=== PATIENT | female | born 1955 | race Caucasian/White ===

== ENCOUNTER → 2018-05-23 | Outpatient (CLI) | payer BC ==
[2018-05-23 08:37] LABS: EOS # 0.1 (0.04-0.40); EOS % 0.4 % (1.0-5.0); HEMATOCRIT 40.2 % (37.0-47.0); HEMOGLOBIN 12.9 g/dL (12.5-16.0); LYMPH# 3.1 (1.50-4.00); MEAN CELL VOLUME 89 fl (78-100); MEAN CORPUSCULAR HEMOGLOBIN 29 pg (27-31); MEAN CORPUSCULAR HGB CONC 32 g/dL (33-37); MEAN PLATELET VOLUME 9.2 fl (7.4-10.4); MONO # 0.8 (0.20-0.80); PLATELET COUNT 423 K/mm3 (130-400); RED BLOOD COUNT 4.53 M/mm3 (4.10-5.30); RED CELL DISTRIBUTION WIDTH 14.8 % (11.5-14.5)
[2018-05-23 09:09] LABS: ALBUMIN 4.3 g/dL (3.5-5.0); CALCIUM 9.7 mg/dL (8.4-10.2); POTASSIUM 4.7 mmol/L (3.6-5.0); TOTAL BILIRUBIN 0.4 mg/dL (0.2-1.3); TOTAL PROTEIN 7.6 g/dL (6.3-8.2)
[2018-05-23 09:39] LABS: ERYTHROCYTE SEDIMENTATION RATE 22 mm/hr (0-30)
[2018-05-23 22:08] LABS: C-REACTIVE PROTEIN XXX
[2018-05-23 23:58] LABS: IGM,SERUM 74 mg/dL (33-293); IMMUNOGLOBULIN A 355 mg/dL (69-517); IMMUNOGLOBULIN G 867 mg/dL (552-1631)
== END ==
LOC: RAD 08:13
PROVIDERS: Internal Medicine
DX: J01.90 Acute sinusitis, unspecified (principal); J32.4 Chronic pansinusitis; I10 Essential (primary) hypertension

== ENCOUNTER 2018-06-05 13:00 | Outpatient (RCR) | payer BC | END 2018-06-05 13:30 | disposition home or self-care (01) | LOC: PT 13:00 | DX: M47.816 Spondylosis without myelopathy or radiculopathy, lumbar region (principal); M70.62 Trochanteric bursitis, left hip; M70.61 Trochanteric bursitis, right hip; M76.32 Iliotibial band syndrome, left leg; M76.31 Iliotibial band syndrome, right leg ==

== ENCOUNTER → 2018-06-24 | Outpatient (CLI) | payer BC | LOC: RAD 19:04 | DX: M18.12 Unilateral primary osteoarthritis of first carpometacarpal joint, left hand (principal); S63.502A Unspecified sprain of left wrist, initial encounter; W19.XXXA Unspecified fall, initial encounter ==

== ENCOUNTER → 2018-09-04 | Outpatient (CLI) | payer BC | LOC: RAD 12:00 | DX: S62.012A Displaced fracture of distal pole of navicular [scaphoid] bone of left wrist, initial encounter for closed fracture (principal); M18.12 Unilateral primary osteoarthritis of first carpometacarpal joint, left hand; R60.1 Generalized edema ==

== ENCOUNTER → 2018-09-13 | Outpatient (CLI) | payer BC | LOC: CANPRECLI → RAD 09:46 | DX: M25.532 Pain in left wrist (principal) ==

== ENCOUNTER → 2018-10-23 | Outpatient (CLI) | payer BC | LOC: RAD 15:00 | DX: J32.4 Chronic pansinusitis (principal); J01.90 Acute sinusitis, unspecified; R06.02 Shortness of breath ==

== ENCOUNTER → 2019-01-22 | Outpatient (CLI) | payer BC ==
[2019-01-22 10:32] LABS: BASO # 0.1 (0.02-0.10); EOS # 0.1 (0.04-0.40); EOS % 1.3 % (1.0-5.0); HEMATOCRIT 41.9 % (37.0-47.0); HEMOGLOBIN 12.7 g/dL (12.5-16.0); LYMPH# 2.2 (1.50-4.00); MEAN CELL VOLUME 90 fl (78-100); MEAN CORPUSCULAR HEMOGLOBIN 27 pg (27-31); MEAN CORPUSCULAR HGB CONC 30 g/dL (33-37); MEAN PLATELET VOLUME 10.1 fl (7.4-10.4); MONO # 0.7 (0.20-0.80); NEU # 7.2 (1.40-6.50); PLATELET COUNT 411 K/mm3 (130-400); RED BLOOD COUNT 4.68 M/mm3 (4.10-5.30); RED CELL DISTRIBUTION WIDTH 14.9 % (11.5-14.5); WHITE BLOOD COUNT 10.4 K/mm3 (4.8-10.8)
== END ==
LOC: LAB 09:38
PROVIDERS: Internal Medicine Pulmonary Disease
DX: R06.02 Shortness of breath (principal); R05 Cough

== ENCOUNTER → 2019-09-04 | Outpatient (CLI) | payer BC ==
[2019-09-04 08:53] LABS: BASO # 0.1 (0.02-0.10); EOS # 0.2 (0.04-0.40); EOS % 1.3 % (1.0-5.0); HEMATOCRIT 42.8 % (37.0-47.0); HEMOGLOBIN 13.1 g/dL (12.5-16.0); LYMPH# 3.3 (1.50-4.00); MEAN CELL VOLUME 87 fl (78-100); MEAN CORPUSCULAR HEMOGLOBIN 27 pg (27-31); MEAN CORPUSCULAR HGB CONC 31 g/dL (33-37); MEAN PLATELET VOLUME 9.5 fl (7.4-10.4); MONO # 0.8 (0.20-0.80); PLATELET COUNT 456 K/mm3 (130-400); RED CELL DISTRIBUTION WIDTH 14.8 % (11.5-14.5); WHITE BLOOD COUNT 14.6 K/mm3 (4.8-10.8)
[2019-09-04 08:56] LABS: NEU # 10.2 (1.40-6.50)
[2019-09-04 09:10] LABS: ALBUMIN 4.4 g/dL (3.4-4.8)
[2019-09-04 09:11] LABS: POTASSIUM 4.3 mmol/L (3.5-5.1)
[2019-09-04 09:12] LABS: CALCIUM 10.1 mg/dL (8.3-10.5)
[2019-09-04 09:13] LABS: TOTAL PROTEIN 7.6 g/dL (6.2-8.1)
[2019-09-04 09:15] LABS: TOTAL BILIRUBIN 0.3 mg/dL (0.2-1.2)
[2019-09-04 09:16] LABS: PROTHROMBIN TIME 9.3 SECONDS (9.0-12.0)
[2019-09-04 09:19] LABS: MAGNESIUM 2.13 mg/dL (1.60-2.60)
[2019-09-04 10:01] LABS: PH-URINE 7.5 (5.0 - 8.0); URINE APPEARANCE CLEAR; URINE BILIRUBIN NEGATIVE (NEGATIVE); URINE BLOOD NEGATIVE (NEGATIVE); URINE COLOR YELLOW; URINE GLUCOSE NEGATIVE (NEGATIVE); URINE KETONE NEGATIVE (NEGATIVE); URINE LEUKOCYTE ESTERASE NEGATIVE (NEGATIVE); URINE NITRATE NEGATIVE (NEGATIVE); URINE PROTEIN(semi-quant) NEGATIVE (NEGATIVE); URINE UROBILINOGEN NORMAL (NORMAL)
[2019-09-04 10:02] LABS: URINE MUCUS PRESENT (NOT PRESENT)
== END ==
LOC: LAB 08:42
PROVIDERS: Internal Medicine
DX: Z01.818 Encounter for other preprocedural examination (principal); H25.813 Combined forms of age-related cataract, bilateral

== ENCOUNTER → 2020-03-04 | Outpatient (CLI) | payer BC | LOC: LAB 15:35 | DX: I10 Essential (primary) hypertension (principal) ==

== ENCOUNTER → 2020-03-20 | Outpatient (CLI) | payer BC ==
[2020-03-20 11:54] LABS: BASO # 0.1 (0.02-0.10); EOS # 0.3 (0.04-0.40); EOS % 2.1 % (1.0-5.0); HEMATOCRIT 42.4 % (37.0-47.0); HEMOGLOBIN 13.2 g/dL (12.5-16.0); LYMPH# 2.2 (1.50-4.00); MEAN CELL VOLUME 86 fl (78-100); MEAN CORPUSCULAR HEMOGLOBIN 27 pg (27-31); MEAN CORPUSCULAR HGB CONC 31 g/dL (33-37); MEAN PLATELET VOLUME 9.7 fl (7.4-10.4); MONO # 0.7 (0.20-0.80); NEU # 8.5 (1.40-6.50); PLATELET COUNT 419 K/mm3 (130-400); RED BLOOD COUNT 4.96 M/mm3 (4.10-5.30); RED CELL DISTRIBUTION WIDTH 15.1 % (11.5-14.5); WHITE BLOOD COUNT 11.7 K/mm3 (4.8-10.8)
[2020-03-20 12:09] LABS: ALBUMIN 4.5 g/dL (3.4-4.8); POTASSIUM 4.2 mmol/L (3.5-5.1)
[2020-03-20 12:12] LABS: TOTAL PROTEIN 7.9 g/dL (6.2-8.1)
[2020-03-20 12:13] LABS: TOTAL BILIRUBIN 0.3 mg/dL (0.2-1.2)
== END ==
LOC: LAB 11:43
PROVIDERS: Internal Medicine
DX: Z00.00 Encounter for general adult medical examination without abnormal findings (principal); R20.2 Paresthesia of skin

== ENCOUNTER → 2021-05-28 | Outpatient (CLI) | payer MEDICARE, OTHER ==
[2021-05-28 11:31] LABS: URINE APPEARANCE CLEAR; URINE BILIRUBIN NEGATIVE (NEGATIVE); URINE BLOOD NEGATIVE (NEGATIVE); URINE COLOR YELLOW; URINE GLUCOSE NEGATIVE (NEGATIVE); URINE KETONE NEGATIVE (NEGATIVE); URINE LEUKOCYTE ESTERASE NEGATIVE (NEGATIVE); URINE NITRATE NEGATIVE (NEGATIVE); URINE PROTEIN(semi-quant) TRACE mg/dL (NEGATIVE); URINE UROBILINOGEN NORMAL (NORMAL)
== END ==
LOC: LAB 10:57
PROVIDERS: Internal Medicine
DX: N39.0 Urinary tract infection, site not specified (principal)

== ENCOUNTER → 2021-06-26 | Outpatient (CLI) | payer MEDICARE, OTHER ==
[2021-06-26 10:34] LABS: BASO # 0.06 K/mm3 (0.02-0.10); EOS # 0.09 K/mm3 (0.04-0.40); HEMATOCRIT 41.5 % (37.0-47.0); HEMOGLOBIN 12.8 g/dL (12.5-16.0); LYMPH# 2.22 K/mm3 (1.50-4.00); MEAN CELL VOLUME 90 fl (78-100); MEAN CORPUSCULAR HEMOGLOBIN 28 pg (27-31); MEAN CORPUSCULAR HGB CONC 31 g/dL (33-37); MEAN PLATELET VOLUME 9.1 fl (7.4-10.4); MONO # 0.54 K/mm3 (0.20-0.80); NEU # 5.84 K/mm3 (1.40-6.50); PLATELET COUNT 400 K/mm3 (130-400); RED CELL DISTRIBUTION WIDTH 14.4 % (11.5-14.5); WHITE BLOOD COUNT 8.8 K/mm3 (4.8-10.8)
[2021-06-26 10:43] LABS: ALBUMIN 4.2 g/dL (3.4-4.8); POTASSIUM 4.2 mmol/L (3.5-5.1)
[2021-06-26 10:44] LABS: CALCIUM 9.7 mg/dL (8.3-10.5)
[2021-06-26 10:46] LABS: TOTAL PROTEIN 7.3 g/dL (6.2-8.1)
[2021-06-26 10:48] LABS: TOTAL BILIRUBIN 0.5 mg/dL (0.2-1.2)
[2021-06-26 11:43] LABS: ERYTHROCYTE SEDIMENTATION RATE 25 mm/hr (0-30)
== END ==
LOC: LAB 10:08
PROVIDERS: Internal Medicine
DX: Z12.11 Encounter for screening for malignant neoplasm of colon (principal); I10 Essential (primary) hypertension; K90.9 Intestinal malabsorption, unspecified; E78.2 Mixed hyperlipidemia

== ENCOUNTER → 2021-06-30 | Outpatient (CLI) | payer MEDICARE, OTHER | LOC: LAB 09:57 | DX: Z12.11 Encounter for screening for malignant neoplasm of colon (principal); I10 Essential (primary) hypertension; K90.9 Intestinal malabsorption, unspecified; E78.2 Mixed hyperlipidemia ==

== ENCOUNTER → 2021-07-30 | Outpatient (CLI) | payer MEDICARE, OTHER ==
[2021-07-30 12:34] LABS: PH-URINE 5.5 (5.0 - 8.0); URINE APPEARANCE CLEAR; URINE COLOR YELLOW; URINE GLUCOSE NEGATIVE (NEGATIVE); URINE PROTEIN(semi-quant) TRACE (NEGATIVE)
[2021-07-30 12:35] LABS: URINE BILIRUBIN NEGATIVE (NEGATIVE); URINE BLOOD NEGATIVE (NEGATIVE); URINE KETONE NEGATIVE (NEGATIVE); URINE LEUKOCYTE ESTERASE NEGATIVE (NEGATIVE); URINE NITRATE NEGATIVE (NEGATIVE); URINE UROBILINOGEN NORMAL (NORMAL)
== END ==
LOC: LAB 11:58
PROVIDERS: Internal Medicine
DX: N39.0 Urinary tract infection, site not specified (principal)

== ENCOUNTER → 2021-08-03 | Outpatient (CLI) | payer MEDICARE, OTHER ==
[2021-08-03 09:58] LABS: BASO # 0.08 K/mm3 (0.02-0.10); EOS # 0.18 K/mm3 (0.04-0.40); EOS % 1.7 % (1.0-5.0); HEMATOCRIT 36.2 % (37.0-47.0); HEMOGLOBIN 11.4 g/dL (12.5-16.0); LYMPH# 2.24 K/mm3 (1.50-4.00); MEAN CELL VOLUME 89 fl (78-100); MEAN CORPUSCULAR HEMOGLOBIN 28 pg (27-31); MEAN CORPUSCULAR HGB CONC 32 g/dL (33-37); MEAN PLATELET VOLUME 9.8 fl (7.4-10.4); MONO # 0.76 K/mm3 (0.20-0.80); NEU # 7.26 K/mm3 (1.40-6.50); PLATELET COUNT 454 K/mm3 (130-400); RED BLOOD COUNT 4.07 M/mm3 (4.10-5.30); RED CELL DISTRIBUTION WIDTH 13.3 % (11.5-14.5); WHITE BLOOD COUNT 10.6 K/mm3 (4.8-10.8)
[2021-08-03 10:04] LABS: ALBUMIN 3.9 g/dL (3.4-4.8); POTASSIUM 3.8 mmol/L (3.5-5.1)
[2021-08-03 10:06] LABS: CALCIUM 10.1 mg/dL (8.3-10.5)
[2021-08-03 10:07] LABS: TOTAL PROTEIN 7.2 g/dL (6.2-8.1)
[2021-08-03 10:09] LABS: TOTAL BILIRUBIN 0.3 mg/dL (0.2-1.2)
[2021-08-03 11:13] LABS: ERYTHROCYTE SEDIMENTATION RATE 70 mm/hr (0-30)
== END ==
LOC: LAB 08:13
PROVIDERS: Internal Medicine
DX: R10.84 Generalized abdominal pain (principal)

== ENCOUNTER → 2021-08-04 | Outpatient (CLI) | payer MEDICARE, OTHER | LOC: RAD 10:45 | DX: K57.30 Diverticulosis of large intestine without perforation or abscess without bleeding (principal); K63.0 Abscess of intestine | CPT/HCPCS: Q9967 ==

== ENCOUNTER → 2021-08-17 | Outpatient (CLI) | payer MEDICARE, OTHER ==
[2021-08-17 17:22] LABS: BASO # 0.06 K/mm3 (0.02-0.10); EOS % 0.9 % (1.0-5.0); HEMATOCRIT 39.6 % (37.0-47.0); HEMOGLOBIN 12.4 g/dL (12.5-16.0); LYMPH# 2.45 K/mm3 (1.50-4.00); MEAN CELL VOLUME 88 fl (78-100); MEAN CORPUSCULAR HEMOGLOBIN 28 pg (27-31); MEAN CORPUSCULAR HGB CONC 31 g/dL (33-37); MEAN PLATELET VOLUME 8.9 fl (7.4-10.4); MONO # 0.65 K/mm3 (0.20-0.80); NEU # 7.36 K/mm3 (1.40-6.50); PLATELET COUNT 535 K/mm3 (130-400); RED BLOOD COUNT 4.51 M/mm3 (4.10-5.30); RED CELL DISTRIBUTION WIDTH 14.2 % (11.5-14.5); WHITE BLOOD COUNT 10.7 K/mm3 (4.8-10.8)
[2021-08-17 18:09] LABS: ALBUMIN 4.1 g/dL (3.4-4.8)
[2021-08-17 18:11] LABS: CALCIUM 9.6 mg/dL (8.3-10.5)
[2021-08-17 18:14] LABS: TOTAL BILIRUBIN 0.3 mg/dL (0.2-1.2)
[2021-08-17 19:21] LABS: ERYTHROCYTE SEDIMENTATION RATE 49 mm/hr (0-30)
== END ==
LOC: LAB 17:05
PROVIDERS: Internal Medicine
DX: K57.20 Diverticulitis of large intestine with perforation and abscess without bleeding (principal); K57.32 Diverticulitis of large intestine without perforation or abscess without bleeding

== ENCOUNTER → 2021-08-18 | Outpatient (CLI) | payer MEDICARE, OTHER | LOC: RAD 09:40 | DX: K57.30 Diverticulosis of large intestine without perforation or abscess without bleeding (principal); K65.1 Peritoneal abscess | CPT/HCPCS: Q9967 ==

== ENCOUNTER → 2021-11-13 | Outpatient (CLI) | payer MEDICARE, OTHER ==
[2021-11-13 13:00] LABS: BASO # 0.04 K/mm3 (0.02-0.10); EOS # 0.06 K/mm3 (0.04-0.40); EOS % 0.4 % (1.0-5.0); HEMATOCRIT 44.7 % (37.0-47.0); HEMOGLOBIN 13.7 g/dL (12.5-16.0); LYMPH# 2.53 K/mm3 (1.50-4.00); MEAN CELL VOLUME 89 fl (78-100); MEAN CORPUSCULAR HEMOGLOBIN 27 pg (27-31); MEAN CORPUSCULAR HGB CONC 31 g/dL (33-37); MEAN PLATELET VOLUME 8.8 fl (7.4-10.4); MONO # 0.72 K/mm3 (0.20-0.80); PLATELET COUNT 463 K/mm3 (130-400); RED BLOOD COUNT 5.05 M/mm3 (4.10-5.30); RED CELL DISTRIBUTION WIDTH 14.6 % (11.5-14.5); WHITE BLOOD COUNT 15.6 K/mm3 (4.8-10.8)
[2021-11-13 13:09] LABS: ALBUMIN 4.5 g/dL (3.4-4.8)
[2021-11-13 13:10] LABS: POTASSIUM 3.8 mmol/L (3.5-5.1)
[2021-11-13 13:11] LABS: CALCIUM 10.1 mg/dL (8.3-10.5)
[2021-11-13 13:12] LABS: TOTAL PROTEIN 8.2 g/dL (6.2-8.1)
[2021-11-13 13:14] LABS: TOTAL BILIRUBIN 0.5 mg/dL (0.2-1.2)
[2021-11-13 13:23] LABS: URINE APPEARANCE CLEAR; URINE BILIRUBIN NEGATIVE (NEGATIVE); URINE BLOOD TRACE (NEGATIVE); URINE COLOR YELLOW; URINE GLUCOSE NEGATIVE (NEGATIVE); URINE KETONE NEGATIVE (NEGATIVE); URINE LEUKOCYTE ESTERASE TRACE (NEGATIVE); URINE NITRATE NEGATIVE (NEGATIVE); URINE PROTEIN(semi-quant) TRACE (NEGATIVE); URINE UROBILINOGEN NORMAL (NORMAL)
[2021-11-13 13:24] LABS: URINE MUCUS PRESENT (NOT PRESENT)
== END ==
LOC: LAB 12:38
PROVIDERS: Nurse Practitioner Family
DX: K57.32 Diverticulitis of large intestine without perforation or abscess without bleeding (principal); K57.30 Diverticulosis of large intestine without perforation or abscess without bleeding
CPT/HCPCS: Q9967

== ENCOUNTER → 2021-11-30 | Outpatient (CLI) | payer MEDICARE, OTHER | LOC: LAB 12:25 | DX: D64.9 Anemia, unspecified (principal); M10.9 Gout, unspecified ==

== ENCOUNTER → 2021-12-19 | Outpatient (CLI) | payer MEDICARE, OTHER | LOC: LAB 12:28 | DX: J22 Unspecified acute lower respiratory infection (principal) ==

== ENCOUNTER → 2022-01-26 | Outpatient (CLI) | payer MEDICARE, OTHER | LOC: RAD 08:00 | DX: J32.9 Chronic sinusitis, unspecified (principal) ==

== ENCOUNTER → 2022-03-10 | Outpatient (CLI) | payer MEDICARE, OTHER | LOC: RAD 13:02 | DX: J32.0 Chronic maxillary sinusitis (principal) ==

== ENCOUNTER 2023-03-02 09:05 | Outpatient (RCR) | payer MEDICARE, OTHER | END 2023-03-10 | disposition home or self-care (01) | LOC: PT | DX: S82.142D Displaced bicondylar fracture of left tibia, subsequent encounter for closed fracture with routine healing (principal); S82.832D Other fracture of upper and lower end of left fibula, subsequent encounter for closed fracture with routine healing; S89.392D Other physeal fracture of lower end of left fibula, subsequent encounter for fracture with routine healing ==

== ENCOUNTER → 2023-04-13 | Outpatient (CLI) | payer MEDICARE, OTHER ==
[2023-04-13 12:40] LABS: CLUE CELLS NOT OBSERVED (Not Observd)
== END ==
LOC: LAB 12:24
PROVIDERS: Nurse Practitioner Family
DX: N89.8 Other specified noninflammatory disorders of vagina (principal); R19.5 Other fecal abnormalities
CPT/HCPCS: Q0111

== ENCOUNTER → 2023-04-19 | Outpatient (CLI) | payer MEDICARE, OTHER ==
[2023-04-19 13:29] LABS: URINE APPEARANCE CLEAR; URINE BILIRUBIN NEGATIVE (NEGATIVE); URINE BLOOD NEGATIVE (NEGATIVE); URINE COLOR YELLOW; URINE GLUCOSE NEGATIVE (NEGATIVE); URINE KETONE NEGATIVE (NEGATIVE); URINE LEUKOCYTE ESTERASE NEGATIVE (NEGATIVE); URINE NITRATE NEGATIVE (NEGATIVE); URINE PROTEIN(semi-quant) NEGATIVE (NEGATIVE); URINE UROBILINOGEN NORMAL (NORMAL)
[2023-04-19 13:30] LABS: URINE WBC 0-1 /hpf (0-3)
== END ==
LOC: LAB 11:04
PROVIDERS: Internal Medicine
DX: N39.0 Urinary tract infection, site not specified (principal)

== ENCOUNTER → 2023-12-01 | Outpatient (CLI) | payer MEDICARE, OTHER ==
[2024-01-22 14:45] LABS: BETA GLOBULINS (PEP) 1.2; PROTEIN TOTAL FOR PEP 7.2
[2024-01-22 14:46] LABS: A/G RATIO (PEP) 1.1
== END ==
LOC: LAB 12:30
PROVIDERS: Internal Medicine
DX: K14.8 Other diseases of tongue (principal); I10 Essential (primary) hypertension; K90.9 Intestinal malabsorption, unspecified; R23.3 Spontaneous ecchymoses; S06.5X0S Traumatic subdural hemorrhage without loss of consciousness, sequela

== ENCOUNTER → 2023-12-06 | Outpatient (CLI) | payer MEDICARE, OTHER ==
[2024-01-25 15:14] LABS: URINE ALBUMIN 24HR (IEP) AMS; URINE ALPHA 1 GLOB 24HR (IEP) AMS; URINE ALPHA 2 GLOB 24HR (IEP) AMS; URINE HOURS (IEP) AMS; URINE IMPRESSION 24HR (IEP) AMS; URINE TOTAL VOLUME (IEP) AMS
== END ==
LOC: LAB 08:38
PROVIDERS: Internal Medicine
DX: K14.8 Other diseases of tongue (principal)

== ENCOUNTER → 2023-12-13 | Outpatient (CLI) | payer MEDICARE, OTHER ==
[2024-01-31 11:29] LABS: HEPATITIS C VIRUS ANTIBODY NON REACTIVE; VITAMIN B1 AMS
[2024-01-31 12:39] LABS: MAGNESIUM 2.06 mg/dL (1.60-2.60)
== END ==
LOC: LAB 15:53
PROVIDERS: Internal Medicine
DX: Z11.59 Encounter for screening for other viral diseases (principal); I10 Essential (primary) hypertension; M85.80 Other specified disorders of bone density and structure, unspecified site; E78.2 Mixed hyperlipidemia; K90.9 Intestinal malabsorption, unspecified